=== PATIENT | male | born 1960 | race Caucasian/White ===

== ENCOUNTER 2023-05-18 11:08 | Day surgery (SDC) | payer OTHER ==
[2023-05-10 10:01] VITALS: BMI 29.8
[2023-05-18] MEDS ORDERED: PROPOFOL 60 ML ONE (11:51)
[2023-05-18 12:27] VITALS: TEMP 97.5
[2023-05-18 12:59] VITALS: BP 119/70; PULSE 76; RESP 18
== END 2023-05-18 12:59 | disposition home or self-care (01) ==
LOC: FASU-ENDO 11:08
PROVIDERS: ATTEND Internal Medicine Gastroenterology
PROC: 0DJD8ZZ Inspection of Lower Intestinal Tract, Via Natural or Artificial Opening Endoscopic (ICD-10-PCS; principal; 2023-05-18 11:57)
DX: Z12.11 Encounter for screening for malignant neoplasm of colon (principal); K57.30 Diverticulosis of large intestine without perforation or abscess without bleeding; K64.1 Second degree hemorrhoids